=== PATIENT | male | born 1965 | race Caucasian/White ===

== ENCOUNTER 2017-05-02 07:21 | Day surgery (SDC) | payer OTHER ==
[~2017-05-02] VITALS: Ht 172.7 cm; Wt 98.0 kg
[~2017-05-02 07:21] MED LIST: FETZIMA80 MG PO; VYVANSE50 MG PO
== END 2017-05-02 09:30 | disposition short-term general hospital (02) ==
LOC: SURGOP 07:21
PROC: 0DJD8ZZ Inspection of Lower Intestinal Tract, Via Natural or Artificial Opening Endoscopic (ICD-10-PCS; principal; 2017-05-02)
DX: Z12.11 Encounter for screening for malignant neoplasm of colon (principal); J01.90 Acute sinusitis, unspecified; E55.9 Vitamin D deficiency, unspecified; F17.200 Nicotine dependence, unspecified, uncomplicated; Z79.899 Other long term (current) drug therapy; Z86.2 Personal history of diseases of the blood and blood-forming organs and certain disorders involving the immune mechanism
CPT/HCPCS: J2175; J2250